=== PATIENT | female | born 1970 | race Caucasian/White ===

== ENCOUNTER 2023-07-18 07:56 | Outpatient (OUT) | payer BC, SELFPAY ==
[2023-07-18 08:14] LABS: Basophils Percent Auto 0.4 % (0.2-2.0); Eosinophils Absolute Auto 0.1 10^3/uL (0.0-0.7); Eosinophils Percent Auto 1.1 % (0.9-7.0); Hematocrit 37.4 % (36.0-48.0); Hemoglobin 12.4 g/dL (12.0-16.0); Immature Granulocytes Abs Auto 0.01 10^3/uL (0.00-0.03); Immature Granulocytes Pct Auto 0.2 % (0.0-0.5); Lymphocytes Absolute Auto 1.5 10^3/uL (1.2-3.8); Lymphocytes Percent Auto 27.8 % (20.5-60.0); Mean Corpuscular HGB Conc 33.2 g/dL (29.9-35.2); Mean Corpuscular Hemoglobin 30.5 pg (26.7-34.0); Mean Corpuscular Volume 92.1 fL (81.0-99.0); Mean Platelet Volume 9.9 fL (9.5-13.5); Monocytes Absolute Auto 0.4 10^3/uL (0.3-0.8); Monocytes Percent Auto 7.6 % (1.7-12.0); Neutrophils Absolute Auto 3.4 10^3/uL (1.4-6.5); Neutrophils Percent Auto 62.9 % (43.0-75.0); Platelet Count 227 10^3/uL (150-450); Red Blood Count 4.06 10^6/uL (4.20-5.40); White Blood Count 5.4 10^3/uL (4.0-11.0)
[2023-07-18 08:25] LABS: Estimated Average Glucose 108 mg/dL; Glycohemoglobin A1C 5.4 % (4.5-6.2)
[2023-07-18 08:51] LABS: Alanine Aminotransferase 23 U/L (14-59); Albumin Globulin Ratio 1.1; Albumin Level 3.9 g/dL (3.4-5.0); Alkaline Phosphatase 78 U/L (46-116); Anion Gap 9.3; Aspartate Amino Transferase 16 U/L (15-37); Bilirubin Total 0.4 mg/dL (0.2-1.0); Carbon Dioxide 28.6 mmol/L (21.0-32.0); Chloride 105 mmol/L (98-107); Chol HDL Ratio 2.1; Cholesterol 160 mg/dL (<=200); Estimated GFR (African America >60 (>=60); Estimated GFR (Non-African Ame >60 (>=60); Free T3 2.24 pg/mL (2.18-3.98); Globulin 3.4 g/dL; Glucose 84 mg/dL (74-106); HDL Cholesterol 75 mg/dL (40-60); Potassium 3.9 mmol/L (3.5-5.1); Sodium 139 mmol/L (136-145); Thyroid Stimulating Hormone 2.356 uIU/mL (0.358-3.740); Total Protein 7.3 g/dL (6.4-8.2); Triglycerides 22 mg/dL (<=150); VLDL CHOLESTEROL 4.4 mg/dL
[2023-07-19 11:15] LABS: Insulin 5.4 uIU/mL (2.6-24.9)
== END 2023-07-18 07:57 | disposition home or self-care (01) ==
LOC: LAB 07:59
PROVIDERS: PCP Family Medicine; Visit Provider Family Medicine
DX: Z00.00 Encounter for general adult medical examination without abnormal findings (principal)
CPT/HCPCS: 36415; 80053; 80061; 82306; 83036; 83525; 83540; 84436; 84443; 84481; 85025

== ENCOUNTER 2023-07-19 08:30 | Outpatient (REF) | payer BC, SELFPAY ==
[2023-07-20 10:15] LABS: Occult Blood Positive
== END 2023-07-19 08:31 | disposition home or self-care (01) ==
LOC: LAB 08:30
PROVIDERS: PCP Family Medicine; Visit Provider Family Medicine
DX: Z00.00 Encounter for general adult medical examination without abnormal findings (principal)
CPT/HCPCS: G0328

== ENCOUNTER 2023-09-02 09:24 | Outpatient (OUT) | payer BC, SELFPAY ==
--- OUTSIDE RECORDS SUMMARY | 2023-09-02 09:48 | XMS_ITS | CCD ---
Author Name Unknown Address [address] [place] [address] Organization [facility] Care Team Providers Care Food Service Counter Clerk Name Role Phone PHYSICIAN, DEFAULT Unavailable Unavailable PHYSICIAN, DEFAULT Unavailable Unavailable JESSICA, DR JEAN Attending Unavailable JESSICA, DR JEAN Admitting Unavailable JESSICA, DR JEAN Primary Care Unavailable JESSICA, DR JEAN Consulting Unavailable JESSICA, DR JEAN Admitting Unavailable JESSICA, DR JEAN Primary Care Unavailable JESSICA, DR JEAN Consulting Unavailable DR MIRANDA LOPEZ Attending Unavailable NONE, XXXX Primary Care Physician Unavailab Bladimir Sr Attending Unavailable Miranda Lopez Referring Unavailable Allergies Allergy Classification Reported Allergen(s) Allergy Type Date of Onset Reaction(s) Facility (1 source) No Known Medication Allergies; Translations: [No Known Medication Allergies] Propensity to adverse reactions (disorder) [facility] Repository Medications Completed/Discontinued Medications Medication Drug Class(es) Dates Sig (Normalized) Sig (Original) brimonidine tartrate 1 mg/ml ophthalmic solution (1 source) alpha-Adrenergic Agonist Start: 08-18-2023 brimonidine ophthalmic 0.1% solution 1 drop(s), Eye-Both, BID, Refill(s) 0 Start Date: 08/18/23 Status: Ordered Problems Problem Classification Problem Date Documented Da te Episodic/Chronic Deficiency and other anemia (5 sources) Anemia, unspecified; Translations: [ANEMIA UNSPECIFIED] Onset: 05-05-2022 Episodic Diabetes mellitus without complication (1 source) Other abnormal glucose; Translations: [OTHER ABNORMAL GLUCOSE] Onset: 05-07-2022 Episodic Heart valve disorders (2 sources) Mitral valve regurgitation; Translations: [Tricuspid valve regurgitation] 08-07-2023 Chronic Other gastrointestinal disorders (1 source) Abnormal feces; Translations: [Other fecal abnormalities] Onset: 08-18-2023 Episodic Other gastrointestinal disorders (1 source) Occult blood in stools 08-07-2023 Episodic Other nervous system disorders (5 sources) Carpal tunnel syndrome, right upper limb; Translations: [CARPAL TUNNEL SYND RIGHT UPPER LIMB] Onset: 05-03-2022 Chronic Other screening for suspected conditions (not mental disorders or infectious disease) (1 source) Encounter for screening for malignant neoplasm of rectum; Translations: [ENC SCREEN MALIG NEOPLASM RECTUM] Onset: 05-06-2022 Episodic Unclassified (1 source) Body mass index 20-24 - normal 08-18-2023 Results Test Name Value Interpretation Reference Range Facil ity Consent for Procedure/Surger yon 08-20-2023 Consent for Procedure/Surgery [id number] [facility] Facesheeton 08-19-2023 Facesheet [id number] FF Normal [facility] Ambulatory Visit Summaryon 1 10-19-2022 Ambulatory Visit Summary TORITO GUILLEN :1970 Visit Date:08/18/2023 Ambulatory Visit Instructions Your Diagnosis Positive fecal occult blood test Your Care Team Attending Physician - Bladimir CASTELLANOS MD Primary Care Physician - NONE, XXXX Referring Physician - Miranda Lopez MD This Is Your Medications List Contact prescribing physician if questions or concerns brimonidine ophthalmic (brimonidine ophthalmic 0.1% solution) Procedures Performed section, Cystectomy, Cystectomy, Dilation and curettage, Eye surgery. Discharge Vitals Heart Rate (Peripheral) 68 Respiratory Rate 16 Blood Pressure 118/76 Height 154.9 cm Height 61 in Weight 55.8 kg Weight 122.76 lb BMI 23.26 Medications What How Much When Instructions Unchanged brimonidine ophthalmic (brimonidine ophthalmic 0.1% solution) 1 Drops Both eyes 2 times a day Contact prescribing physician if questions or concerns Medications and Immunizations Administered Not Given influenza virus vaccine, inactivated, Patient Refuses Allergies No Known Allergies No Known Medication Allergies Problems Ongoing - Any problem that you are currently receiving treatment for. BMI 23.0-23.9, adult Mitral regurgitation Positive fecal occult blood test Tricuspid regurgitation Patient Survey You may receive a survey via text or e-mail asking about your office visit. Please share your experience with us by completing your survey. We appreciate your feedback and thank you for choosing us for your care. Normal [facility] Physician Referralon 023 Physician Referral [id number] Normal [facility] OCC BLD IMMUNO SCREENon 04-15 OCCULT BLOOD Negative Normal NEGATIVE [facility] Comment on above: Performed By: #### O BSCRN #### [facility] [address] [place] [address] Dr. Guerline Lewis T4, T3U, FTI LABCORPon 05-04 Free Thyroxine Index 1.6 Normal 1.2-4.9 [facility] Comment on above: Performed By: #### T HYLC #### [facility] [address] [place] [address] Dr. Guerline Lewis T3 Uptake 28 % Normal 24-39 [facility] Comment on above: Performed By: #### T HYLC #### [facility] [address] [place] [address] Dr. Guerline Lewis T4 [Mass/Vol] 5.6 ug/dL Normal 4.5-12.0 [facility] Comment on above: Performed By: #### T HYLC #### [facility] [address] [place] [address] Dr. Guerline Lewis CBC AUTO DIFFon 05-03-2022 BASO # 0.0 103/ul Normal 0.0-0.1 [facility] Comment on above: Performed By: #### C BC #### [facility] [address] [place] [address] Dr. Guerline Lewis Basophils/100 WBC (Bld) 0.5 % Normal 0.2-2.0 [facility] Comment on above: Performed By: #### C BC #### [facility] [address] [place] [address] Dr. Guerline Lewis EO # 0.1 103/ul Normal 0.0-0.[address] [facility] Comment on above: Performed By: #### C BC #### [facility] [address] [place] [address] Dr. Guerline Lewis Eosinophils/100 WBC (Bld) 2.1 % Normal 0.9-7.0 [facility] Comment on above: Performed By: #### C BC #### [facility] [address] [place] [address] Dr. Guerline Lewis Erythrocyte distribution wid th (RBC) [Ratio] 12.3 % Normal 11.0-15.0 [facility] Comment on above: Performed By: #### C BC #### [facility] [address] [place] [address] Dr. Guerline Lewis Hematocrit (Bld) [Volume fraction] 38.7 % Normal 3 6.0-48.0 [facility] Comment on above: Performed By: #### C BC #### [facility] [address] [place] [address] Dr. Guerline Lewis Hemoglobin (Bld) [Mass/Vol] 12.6 g/dL Normal 12.0-16. 0 [facility] Comment on above: Performed By: #### C BC #### [facility] [address] [place] [address] Dr. Guerline Lewis IG # 0.01 10e3/ul Normal 0.00-0.03 [facility] Comment on above: Performed By: #### C BC #### [facility] [address] [place] [address] Dr. Guerline Lewis IG % 0.2 % Normal 0.0-0.[address] [facility] Comment on above: Performed By: #### C BC #### [facility] [address] [place] [address] Dr. Guerline Lewis LYMPH # 1.2 103/ul Normal 1.2-3.[address] [facility] Comment on above: Performed By: #### C BC #### [facility] [address] [place] [address] Dr. Guerline Lewis Lymphocytes/100 WBC (Bld) 28.1 % Normal 20.5-60.0 [facility] Comment on above: Performed By: #### C BC #### [facility] [address] [place] [address] Dr. Guerline Lewis MANUAL DIFF REQ NO Normal [facility] Comment on above: Performed By: #### C BC #### [facility] [address] [place] [address] Dr. Guerline Lewis MCH (RBC) [Entitic mass] 29.6 pg Normal 26.7-34.0 [facility] Comment on above: Performed By: #### C BC #### [facility] [address] [place] [address] Dr. Guerline Lewis MCHC (RBC) [Mass/Vol] 32.6 g/dL Normal 29.9-35.2 [facility] Comment on above: Performed By: #### C BC #### [facility] [address] [place] [address] Dr. Guerline Lewis MCV (RBC) [Entitic vol] 90.8 fL Normal 81.0-99.0 [facility] Comment on above: Performed By: #### C BC #### [facility] [address] [place] [address] Dr. Guerline Lewis MONO # 0.3 103/ul Normal 0.3-0.8 [facility] Comment on above: Performed By: #### C BC #### [facility] [address] [place] [address] Dr. Guerline Lewis Monocytes/100 WBC (Bld) 7.6 % Normal 1.7-12.0 [facility] Comment on above: Performed By: #### C BC #### [facility] [address] [place] [address] Dr. Guerline Lewis NEUT # 2.7 103/ul Normal 1.4-6.[address] [facility] Comment on above: Performed By: #### C BC #### [facility] [address] [place] [address] Dr. Guerline Lewis Neutrophils/100 WBC (Bld) 61.5 % Normal 43.0-75.0 [facility] Comment on above: Performed By: #### C BC #### [facility] [address] [place] [address] Dr. Guerline Lewis Platelet mean volume (Bld) [ Entitic vol] 10.2 fL Normal 9.5-13.5 [facility] pital Comment on above: Performed By: #### C BC #### [facility] [address] [place] [address] Dr. Guerline Lewis PLT 210 103/ul Normal 150-[address] [facility] ost[facility] Comment on above: Performed By: #### C BC #### [facility] [address] [place] [address] Dr. Guerline Lewis RBC 4.26 106/ul Normal 4.20-5.40 [facility] Comment on above: Performed By: #### C BC #### [facility] [address] [place] [address] Dr. Guerline Lewis WBC 4.3 103/ul Normal 4.0-11.0 [facility] Comment on above: Performed By: #### C BC #### [facility] [address] [place] [address] Dr. Guerline Lewis GLYCOHEMOGLOBIN A1Con 2021 ADA RECOMMENDATION SEE BELOW Normal [facility] Comment on above: Result Comment: ADA RECOMMENDED LIMIT 4.0 - 6.0 ADA THERAPEUTIC TARGET < 7.0 ACTION SUGGESTED > 7.0 Performed By: #### A 1C #### [facility] [address] [place] [address] Dr. Guerline Lewis Glucose [Mass/Vol] 111 mg/dL Normal [facility] Comment on above: Performed By: #### A 1C #### [facility] [address] [place] [address] Dr. Guerline Lewis HbA1c (Bld) [Mass fraction] 5.5 % Normal 4.5-6.2 [facility] Comment on above: Performed By: #### A 1C #### [facility] [address] [place] [address] Dr. Guerline Lewis IRONon 05-03-2022 Iron [Mass/Vol] 90.0 ug/dL Normal 50.0-170.0 [facility] Comment on above: Performed By: #### I SCOTTIE #### [facility] [address] [address] [address] Guerline Lewis LIPID PROFILEon 05-03-2022 CHOL-HDL RATIO NORM SEE BELOW Normal [facility] Comment on above: Result Comment: 3.3 - 4.4 LOW RISK 4.4 - 7.1 AVERAGE RISK 7.1 - 11.0 MODERATE RISK >11.0 HIGH RISK Performed By: #### L IPID, TSH, CMP #### [facility] [address] [address] [address] Guerline Lewis Cholesterol [Mass/Vol] 153 mg/dL Normal <=200 Th [facility] Comment on above: Performed By: #### L IPID, TSH, CMP #### [facility] [address] [address] [address] Guerline Lewis Cholesterol in HDL [Mass/Vol] 76 mg/dL Critically high 4 0-60 [facility] Comment on above: Performed By: #### L IPID, TSH, CMP #### [facility] [address] [address] [address] Guerilne Lewis Cholesterol in LDL [Mass/Vol] 71.6 mg/dL Normal [facility] Comment on above: Performed By: #### L IPID, TSH, CMP #### [facility] [address] [address] [address] Guerline Lewis Cholesterol.total/Cholestero l in HDL [Mass ratio] 2.0 {ratio} Normal [facility] Comment on above: Performed By: #### L IPID, TSH, CMP #### [facility] [address] [address] [address] Guerline Lewis HDL NORMAL > or = 60 mg/dl - LO W CARDIOVASCULAR RISK <40 mg/dl - HIGH CARDIOVASCULAR RISK Normal [facility] Comment on above: Performed By: #### L IPID, TSH, CMP #### [facility] [address] [place] [address] Dr. Guerline Lewis LDL CALC NORMAL SEE BELOW Normal [facility] Comment on above: Result Comment: <100 mg/dl OPTIMAL 100 - 129 mg/dl NEAR OR ABOVE OPTIMAL 130 - 159 mg/dl BORDERLINE HIGH 160 - 189 mg/dl HIGH >190 mg/dl VERY HIGH Performed By: #### L IPID, TSH, CMP #### [facility] [address] [address] [address] Guerline Lewis Triglyceride [Mass/Vol] 27 mg/dL Normal <=150 T [facility] Comment on above: Performed By: #### L IPID, TSH, CMP #### [facility] [address] [address] [address] Guerline Lewis VLDL CALC 5.4 mg/dL Normal [facility] Comment on above: Performed By: #### L IPID, TSH, CMP #### [facility] [address] [place] [address] Dr. Guerline Lewis PROF 14(COMP METB)on 022 Albumin [Mass/Vol] 3.9 g/dL Normal 3.4-5.0 [facility] Comment on above: Performed By: #### L IPID, TSH, CMP #### [facility] [address] [place] [address] Dr. Guerline Lewis Albumin/Globulin [Mass ratio] 1.1 {ratio} Normal [facility] Comment on above: Performed By: #### L IPID, TSH, CMP #### [facility] [address] [place] [address] Dr. Guerline Lewis ALP [Catalytic activity/Vol] 75 U/L Normal 46-116 [facility] Comment on above: Performed By: #### L IPID, TSH, CMP #### [facility] [address] [place] [address] Dr. Guerline Lewis ALT [Catalytic activity/Vol] 25 U/L Normal 14-59 [facility] Comment on above: Performed By: #### L IPID, TSH, CMP #### [facility] [address] [place] [address] Dr. Guerline Lewis Anion gap [Moles/Vol] 12.0 mmol/L Normal Th [facility] Comment on above: Performed By: #### L IPID, TSH, CMP #### [facility] [address] [address] [address] Guerline Lewis AST [Catalytic activity/Vol] 15 U/L Normal 15-37 [facility] Comment on above: Performed By: #### L IPID, TSH, CMP #### [facility] [address] [address] [address] Guerline Lewis Bilirubin [Mass/Vol] 0.4 mg/dL Normal 0.2-1.0 [facility] Comment on above: Performed By: #### L IPID, TSH, CMP #### [facility] [address] [place] [address] Dr. Guerline Lewis Calcium [Mass/Vol] 9.1 mg/dL Normal 8.5-10.1 [facility] Comment on above: Performed By: #### L IPID, TSH, CMP #### [facility] [address] [place] [address] Dr. Guerline Lewis Chloride [Moles/Vol] 107 mmol/L Normal 98-107 [facility] Comment on above: Performed By: #### L IPID, TSH, CMP #### [facility] [address] [place] [address] Dr. Guerline Lewis CO2 [Moles/Vol] 26.3 mmol/L Normal 21.0-32.0 [facility] Comment on above: Performed By: #### L IPID, TSH, CMP #### [facility] [address] [place] [address] Dr. Guerline Lewis Creatinine [Mass/Vol] 0.64 mg/dL Normal 0.55-1.02 [facility] Comment on above: Performed By: #### L IPID, TSH, CMP #### [facility] [address] [address] [address] Guerline Lewis EGFR-AF AUSTRALIAN >60 Normal >=60 [facility] Comment on above: Performed By: #### L IPID, TSH, CMP #### [facility] [address] [address] [address] Guerline Lewis EGFR-NON AF AUSTRALIAN >60 Normal >=60 [facility] Comment on above: Performed By: #### L IPID, TSH, CMP #### [facility] [address] [address] [address] Guerline Lewis Globulin (S) [Mass/Vol] 3.4 g/dL Normal T [facility] Comment on above: Performed By: #### L IPID, TSH, CMP #### [facility] [address] [address] [address] Guerline Lewis Glucose [Mass/Vol] 85 mg/dL Normal 74-106 [facility] Comment on above: Performed By: #### L IPID, TSH, CMP #### [facility] [address] [place] [address] Dr. Guerline Lewis Potassium [Moles/Vol] 4.3 mmol/L Normal 3.5-5.1 [facility] Comment on above: Performed By: #### L IPID, TSH, CMP #### [facility] [address] [address] [address] Guerline Lewis Protein [Mass/Vol] 7.3 g/dL Normal 6.4-8.2 [facility] Comment on above: Performed By: #### L IPID, TSH, CMP #### [facility] [address] [address] [address] Guerline Lewis Sodium [Moles/Vol] 141 mmol/L Normal 136-145 [facility] Comment on above: Performed By: #### L IPID, TSH, CMP #### [facility] [address] [address] [address] Guerline Lewis Urea nitrogen [Mass/Vol] 16.0 mg/dL Normal 7.0-18.0 [facility] Comment on above: Performed By: #### L IPID, TSH, CMP #### [facility] [address] [address] [address] Guerline Lewis Urea nitrogen/Creatinine [Mass ratio] 25.0 mg/mg Normal [facility] Comment on above: Performed By: #### L IPID, TSH, CMP #### [facility] [address] [address] [address] Guerline Lewis TSHon 05-03-2022 TSH 1.883 uIU/mL Normal 0.358-3.740 [facility] Comment on above: Performed By: #### L IPID, TSH, CMP #### [facility] [address] [address] [address] Guerline Lewis Vital Signs Date Time Vital Sign Value Performing Clinician Faci lity 08-18-2023 14:34-0500 Blood Pressure Location Bladimir NILL [facility] [place] 08-18-2023 14:34-0500 Diastolic blood pressure 76 mm[Hg] Bladimir NILL [facility] [place] 08-18-2023 14:34-0500 Heart rate 68 /min Bladimir NILL [facility] [place] 08-18-2023 14:34-0500 Respiratory rate 16 /min Bladimir NILL [facility] [place] 08-18-2023 14:34-0500 Systolic blood pressure 118 mm[Hg] Bladimir NILL [facility] [place] Encounters Encounter Date Encounter Type Care Provider Facility Start: 08-18-2023 End: 08-19-2023 ambulatory Bladimir CASTELLANOS Facility:[facility] Start: 08-18-2023 End: 08-18-2023 Patient encounter procedure Bladimir William NILL [facility] Start: 2023 ambulatory Bladmiir CASTELLANOS Facility:[facility] Start: 07-20-2023 ambulatory Bladimir CASTELLANOS Facility:[facility] Start: 05-05-2022 End: 05-05-[address] MIRANDA LOPEZ Facility:[facility] Start: 05-03-2022 End: 05-04-[address] MIRANDA LOPEZ Facility:[facility] Start: 06-04-2017 End: 06-05-2017 Ambulatory DEFAULT PHYSICIAN Facility[facility] Procedures Date Procedure Procedure Detail Performing Clinician Bladder excision Bladimir Maciel Comment on above: uterine Bladder excision Bladimir Maciel Comment on above: uterus section Bladimir Maciel Dilation and curettage Viet CASTELLANOS Ophthalmic surgery (qualifier value) Bladimir CASTELLANOS Immunizations Immunization Date Immunization Notes Care Provider Fa cility NEGATED: Highlighted row has not occurred!08-18-2023 influenza virus vaccine, unspecified formulation Bladimir CASTELLANOS [facility] [place] Payers Date Payer Category Payer Unknown [id number] [id number] 1970 Unknown [id number] [id number] [id number] 1970 Unknown [id number] 1960 Unknown [id number] Unknown Social History Date Type Detail Facility Start: 08-18-2023 Tobacco smoking status Ex-smoker (fi nding) [facility] [place] Tobacco smoking status Never [facility] [place] Sex Assigned At Female [facility] Functional Status Date Assessment Result Facility 08-18-2023 Functional Status N/A [facility] Clinical Note 08-18-2023 Note Date & Type Note Facility 08-18-2023 Note Chief Complaint consultation for positive occult stool HPI Staff 53 year old female presents on consultation from Dr. Lopez for positive occult stool. Denies abdominal pain. Reports occasional bloating and rare nausea. Denies vomiting. Reports several year history of intermittent rectal bleeding with bowel movements. Reports blood is bright red on toilet tissue and in toilet water. Reports she recently developed intermittent burning rectal pain with bowel movements. Denies change in bowel habits. Never had colonoscopy in the past. No known family history of colon cancer. History of Present Illness 53 yo female referred for positive fecal occult blood in stools; denies change in bms, occasional BRBPR with wiping, occasionally in toilet bowel; some recent burning rectal pain after bms, no abd complaints; abdominal operations significant for , no previous colonoscopy; no asa or NSAID use, no SBE prophylaxis; no fmhx of GI malignancy or IBD; no tobacco use. Review of Systems PHQ Score Initial Depression Screen Score: 0 SCORE ROS - Provider Constitutional: no fever, no sweats, no weight loss. Eyes: no glasses, no blurred vision, no visual loss. ENMT: no dentures, no hoarseness, no swallowing difficulties, no hearing loss, no ear infection(s), no nose bleeds. Cardiovascular: normal blood pressure, no chest pain, regular heartbeat, no heart murmur. Respiratory: no shortness of breath, no cough, no asthma, no wheezing. Gastrointestinal: no nausea, no vomiting, no diarrhea, no constipation, no blood in stool, no change in bowel habits, no abdominal pain, no hepatitis. Genitourinary: no kidney stones, no urine infection, no dysuria. Musculoskeletal: no pain, no weakness. Skin: no changing moles, no rash, no skin lumps. Neurologic: no seizures, no epilepsy, no headache. Psychiatric: no emotional or psychiatric problem. Heme/Lymph: no bleeding problems, no anemia, no blood clots, no transfusions. Allergy/Immunologic: no swollen lymph nodes/glands, no IV drug abuse. Other: Additional ROS info: Except as noted in the above Review of Systems and in the History of Present Illness, all other systems have been reviewed and are negative or noncontributory. Physical Exam Vitals & Measurements HR: 68(Peripheral) RR: 16 BP: 118/76 HT: 61 in HT: 154.9 cm WT: 55.8 kg WT: 122.76 lb BMI: 23.26 HEENT: normal conjunctiva, sclera clear, no scleral icterus, EOM intact, PERRLA, oral mucosa moist without lesions. Neck: trachea midline, no mass, symmetric, no thyromegaly or nodules, no adenopathy Respiratory: lungs CTA, respirations non labored. Cardiovascular: regular rate and rhythm, no murmur, no pedal edema or varicosities. Gastrointestinal: soft, non distended, no tenderness, no masses, no palpable hernias, diastasis recti no, no hepatosplenomegaly; normal bs Lymphatic: no cervical adenopathy, no supraclavicular adenopathy. Musculoskeletal: normal gait, digits and nails without infection, nodes, cyanosis, clubbing. Skin: no rashes, no lesions, no ulcers, no subcutaneous nodules, induration. Psychiatric/Neuro: oriented to time, place, person, judgement normal, affect appropriate for age, insight intact, no focal deficits. Tests: labs reviewed,review of old records completed , Discussed surgical options, risks, and possible complications with patient. Assessment/Plan 1. Positive fecal occult blood test (R19.5: Other fecal abnormalities) plan colonoscopy under anesthesia, informed consent obtained. Follow-up No qualifying data available Problem List/Past Medical History Ongoing BMI 23.0-23.9, adult Mitral regurgitation Positive fecal occult blood test Tricuspid regurgitation Historical No qualifying data Procedure/Surgical History section, Cystectomy, Cystectomy, Dilation and curettage, Eye surgery. Medications brimonidine ophthalmic 0.1% solution, 1 drop(s), Eye-Both, BID Allergies No Known Allergies No Known Medication Allergies Social History Alcohol - Denies Alcohol Use, 08/18/2023 Substance Abuse - Denies Substance Abuse, 08/18/2023 Tobacco Former smoker, quit more than 30 days ago Tobacco Use:. Never Smokeless Tobacco Use:. Cigarettes, 0.75 per day. Started age 16.0 Years. Stopped age 25 Years., 08/18/2023 Family History Abdominal aortic aneurysm: Father. Immunizations Vaccine Date Status Comments influenza virus vaccine, inactivated - Not Given Patient Refuses [facility] Comment on above: Result Comment: Elec tronically Signed By: EMANUEL GRUBBS, Bladimir Florian\Date and Time Signed: 08/18/23 14:59 EST Evaluation + Plan note Note Date & Type Note Facility Evaluation + Plan note No data available for this section [facility] Discharge instructions Note Date & Type Note Facility Hospital Discharge instructions No data available for this section [facility] note Note Date & Type Note Facility Progress note No data available for this section [facility] Summary Purpose Family History No Family History Records FoundNo Family History Records Found No data available for this section No Family History Records Found Advance Directives No Advanced Directives Records FoundNo Advanced Directives Records FoundNo Advanced Directives Records Found Additional Source Comments INFORMATION SOURCE (unrecogn ized section and content) DATE CREATED AUTHOR 03/10/2018 [facility] DATE CREATED AUTHOR AUTHOR'S ORGANIZ ATION 05/08/2022 [facility] DATE CREATED AUTHOR AUTHOR'S ORGANIZ ATION 08/21/2023 [facility] FOR RECORDS PERTAINING TO PATIENTS WHO ARE OR HAVE BEEN ENROLLED IN A CHEMICAL DEPENDENCY/SUBSTANCEABUSE PROGRAM, SOME INFORMATION MAY BE OMITTED. This clinical summary was aggregated from multiple sources. Caution should be exercised in using it in the provision of clinical care. This summary normalizes information from multiple sources, and as a consequence, information in this document may materially change the coding, format and clinical context of patient data. In addition, data may be omitted in some cases. CLINICAL DECISIONS SHOULD BE BASED ON THE PRIMARY CLINICAL RECORDS. [facility] [employer] [facility]. provides no warranty or guarantee of the accuracy or completeness of information in this document.
== END 2023-09-02 09:25 | disposition home or self-care (01) ==
LOC: PST 09:24
PROVIDERS: PCP Family Medicine; Visit Provider Surgery
DX: Z01.818 Encounter for other preprocedural examination (principal); R19.5 Other fecal abnormalities

== ENCOUNTER 2023-09-09 09:22 | Day surgery (SDC) | payer BC, SELFPAY ==
--- NOTE | 2023-09-09 | OP_ITS ---
OPERATION DATE: 09/09/2023 PREOPERATIVE DIAGNOSIS: Positive fecal occult blood. POSTOPERATIVE DIAGNOSIS: Normal colonoscopy except for small internal/external hemorrhoids. PROCEDURE: Colonoscopy to cecum. SURGEON: Bladimir Buckley M.D. ANESTHESIA: Monitored anesthesia care. ESTIMATED BLOOD LOSS: Zero. INDICATIONS AND CONSENT: Patient is a 53-year-old female was recently found to have positive fecal occult blood in the stool. Indications, risks, benefits, alternatives of proceeding with colonoscopy were explained extensively to the patient, including the risks of bleeding, colon perforation or anesthetic complications. All of her questions were answered. Informed consent was obtained. PROCEDURE: Patient brought to the operating room, placed in the left lateral decubitus position. Monitored anesthesia care was provided. Rectal exam was performed which showed no masses or blood. The scope was inserted into the anal canal. Under direct visualization was advanced. With the aid of abdominal compression, it was advanced to the cecum where cecal markings were clearly identified. Upon withdrawal of the scope, mucosal surfaces were carefully examined. There were no mass lesions or polyps. No inflammatory changes or ulcerations. No significant diverticulosis. The scope was retroflexed in the anal canal. There were small internal/external hemorrhoids without active bleeding or inflammation. The scope was then withdrawn. Patient tolerated procedure well, was sent to recovery room in good condition. Follow up screening colonoscopy should be in 10 years. CC: Dmitri Sam M.D. [facility]
[2023-09-09 09:28] VITALS: BP 114/65; PULSE 16; RESP 16; TEMP 36.3; O2SAT 114; BMI 22.6
[2023-09-09] MEDS: LACTATED RINGER'S SOLUTION 1,000 ML 50 ML IV ×2 (09:40→11:51)
[2023-09-09 11:56] VITALS: BP 110/61; PULSE 92; RESP 15; TEMP 36.1; O2SAT 99
[2023-09-09 12:11] VITALS: BP 105/66; PULSE 93; RESP 20; O2SAT 98
[2023-09-09 12:26] VITALS: BP 106/56; PULSE 91; RESP 16; O2SAT 98
== END 2023-09-09 12:26 | disposition home or self-care (01) ==
PROVIDERS: PCP Family Medicine; Visit Provider Surgery
PROC: (CPT 811; principal; 2023-09-09 10:10)
DX: R19.5 Other fecal abnormalities (principal); K64.4 Residual hemorrhoidal skin tags; K64.8 Other hemorrhoids; I08.1 Rheumatic disorders of both mitral and tricuspid valves; Z87.891 Personal history of nicotine dependence
CPT/HCPCS: 00811; 45378; J2704

== ENCOUNTER 2024-07-02 06:33 | Outpatient (OUT) | payer BC, SELFPAY ==
--- OUTSIDE RECORDS SUMMARY | 2024-07-02 06:36 | XMS_ITS | CCD ---
Author Organization [facility] Care Team Providers Care Compression Molding Machine Setter Name Role Phone PHYSICIAN, DEFAULT Unavailable Unavailable PHYSICIAN, DEFAULT Unavailable Unavailable JESSICA, DR JEAN Attending Unavailable JESSICA, DR JEAN Admitting Unavailable JESSICA, DR JEAN Primary Care Unavailable JESSICA, DR JEAN Consulting Unavailable JESSIAC, DR JEAN Admitting Unavailable JESSICA, DR JEAN Primary Care Unavailable JESSICA, DR JEAN Consulting Unavailable JESSICA, DR JEAN Attending Unavailable NONE, XXXX Primary Care Physician Unavailab Bladimir Sr Attending Unavailable Miranda Sam Referring Bladimir Siegel Attending Unavailable Allergies Allergy Classification Reported Allergen(s) Allergy Type Date of Onset Reaction(s) Facility (1 source) No Known Medication Allergies; Translations: [No Known Medication Allergies] Propensity to adverse reactions (disorder) [facility] Repository Medications Completed/Discontinued Medications Medication Drug [...] Name Value Interpretation Reference Range Facil ity Outside Colonoscopyon 2023 Outside Colonoscopy [id number] #1.00TIFF [facility] Reminderson 09-10-2023 Reminders - From: Jocelyne Lama LPN To: N - Clinical; Sent: 09/10/2023 10:40:28 EST Show up: 08/10/2033 07:00:00 EST Subject: colonoscopy recall Due Date/Time: 09/09/2033 07:00:00 EST Reminder/Recall Patient due for screening colonoscopy 09/09/2033. [facility] Consent for Procedure/Surger yon 08-20-2023 Consent for Procedure/Surgery [id number] #1.00TIFF [facility] Facesheeton 08-19-2023 Facesheet [id number] #1.00TIFF [facility] Ambulatory Visit Summaryon 1 10-19-2022 Ambulatory Visit Summary WILMERCASPERTORITO J :1970 Visit Date:08/18/2023 Ambulatory Visit Instructions Your Diagnosis Positive fecal occult blood test Your Care Team Attending Physician - EMANUEL GRUBBS, Bladimir Thomas Primary Care Physician - NONE, XXXX Referring Physician - Miranda Sam MD This Is Your Medications List Contact [...] for choosing us for your care. Normal [facility] Physician Referralon 023 Physician Referral [id number] #1.00TIFF Normal [facility] OCC BLD IMMUNO SCREENon 04-15 OCCULT BLOOD Negative Normal NEGATIVE [facility] Comment on above: Performed By: #### O BSCRN #### [facility] [address] [place] [address] Dr. Guerline Lewis T4, T3U, FTI LABCORPon 05-04 Free Thyroxine Index 1.6 Normal 1.2-4.9 [facility] Comment on above: Performed By: #### T HYLC #### [facility] [address] [place] [address] Dr. Guerline Lewis T3 Uptake 28 % Normal 24-39 [facility] Comment on above: Performed By: #### T HYLC #### [facility] [address] [place] [address] Dr. Guerline Lewis T4 [Mass/Vol] 5.6 ug/dL Normal 4.5-12.0 [facility] Comment on above: Performed By: #### T HYLC #### [facility] [address] [place] [address] Dr. Guerline Lewis CBC AUTO DIFFon 05-03-2022 BASO # 0.0 103/ul Normal 0.0-0.1 [facility] Comment on above: Performed By: #### C BC #### [facility] [address] [place] [address] Dr. Guerline Lewis Basophils/100 WBC (Bld) 0.5 % Normal 0.2-2.0 [facility] Comment on above: Performed By: #### C BC #### [facility] [address] [place] [address] Dr. Guerline Lewis EO # 0.1 103/ul Normal 0.0-0.7 [facility] Comment on above: Performed By: #### C BC #### [facility] [address] [place] [address] Dr. Guerline Lewis Eosinophils/100 WBC (Bld) 2.1 % Normal 0.9-7.0 [facility] Comment on above: Performed By: #### C BC #### [facility] [address] [place] [address] Dr. Guerline Lewis Erythrocyte distribution width (RBC) [Ratio] 12.3 % Normal 11.0-15.0 [facility] Comment on above: Performed By: #### C BC #### [facility] [address] [place] [address] Dr. Guerline Lewis Hematocrit (Bld) [Volume fraction] 38.7 % Normal 36.0-48.0 [facility] Comment on above: Performed By: #### C BC #### [facility] [address] [place] [address] Dr. Guerline Lewis Hemoglobin (Bld) [Mass/Vol] 12.6 g/dL Normal 12.0-16.0 [facility] Comment on above: Performed By: #### C BC #### [facility] [address] [place] [address] Dr. Guerline Lewis IG # 0.01 10e3/ul Normal 0.00-0.03 [facility] Comment on above: Performed By: #### C BC #### [facility] [address] [place] [address] Dr. Guerline Lewis IG % 0.2 % Normal 0.0-0.5 [facility] Comment on above: Performed By: #### C BC #### [facility] [address] [place] [address] Dr. Guerline Lewis LYMPH # 1.2 103/ul Normal 1.2-3.8 [facility] Comment on above: Performed By: #### C BC #### [facility] [address] [place] [address] Dr. Guerline Lewis Lymphocytes/100 WBC (Bld) 28.1 % Normal 20.5-60.0 [facility] Comment on above: Performed By: #### C BC #### [facility] [address] [place] [address] Dr. Guerline Lewis MANUAL DIFF REQ NO Normal [facility] Comment on above: Performed By: #### C BC #### [facility] [address] [place] [address] Dr. Guerline Lewis MCH (RBC) [Entitic mass] 29.6 pg Normal 26.7-34.0 [facility] Comment on above: Performed By: #### C BC #### [facility] [address] [place] [address] Dr. Guerline Lewis MCHC (RBC) [Mass/Vol] 32.6 g/dL Normal 29.9-35.2 [facility] Comment on above: Performed By: #### C BC #### [facility] [address] [place] [address] Dr. Guerline Lewis MCV (RBC) [Entitic vol] 90.8 fL Normal 81.0-99.0 [facility] Comment on above: Performed By: #### C BC #### [facility] [address] [place] [address] Dr. Guerline Lewis MONO # 0.3 103/ul Normal 0.3-0.8 [facility] Comment on above: Performed By: #### C BC #### [facility] [address] [place] [address] Dr. Guerline Lewis Monocytes/100 WBC (Bld) 7.6 % Normal 1.7-12.0 [facility] Comment on above: Performed By: #### C BC #### [facility] [address] [place] [address] Dr. Guerline Lewis NEUT # 2.7 103/ul Normal 1.4-6.5 [facility] Comment on above: Performed By: #### C BC #### [facility] [address] [place] [address] Dr. Guerline Lewis Neutrophils/100 WBC (Bld) 61.5 % Normal 43.0-75.0 [facility] Comment on above: Performed By: #### C BC #### [facility] [address] [place] [address] Dr. Guerline Lewis Platelet mean volume (Bld) [Entitic vol] 10.2 fL Normal 9.5-13.5 [facility] Comment on above: Performed By: #### C BC #### [facility] [address] [place] [address] Dr. Guerline Lewis PLT 210 103/ul Normal 150-450 [facility] Comment on above: Performed By: #### C BC #### [facility] [address] [place] [address] Dr. Guerline Lewis RBC 4.26 106/ul Normal 4.20-5.40 [facility] Comment on above: Performed By: #### C BC #### [facility] [address] [place] [address] Dr. Guerline Lewis WBC 4.3 103/ul Normal 4.0-11.0 [facility] Comment on above: Performed By: #### C BC #### [facility] [address] [place] [address] Dr. Guerline Lewis GLYCOHEMOGLOBIN A1Con 2021 ADA RECOMMENDATION SEE BELOW Normal [facility] Comment on above: Result Comment: ADA RECOMMENDED LIMIT 4.0 - 6.0 ADA THERAPEUTIC TARGET < 7.0 ACTION SUGGESTED > 7.0 Performed By: #### A 1C #### [facility] [address] [place] [address] Dr. Guerline Lewis Glucose [Mass/Vol] 111 mg/dL Normal [facility] Comment on above: Performed By: #### A 1C #### [facility] [address] [address] [address] Guerline Lewis HbA1c (Bld) [Mass fraction] 5.5 % Normal 4.5-6.2 [facility] Comment on above: Performed By: #### A 1C #### [facility] [address] [address] [address] Guerline Lewis IRONon 05-03-2022 Iron [Mass/Vol] 90.0 ug/dL Normal 50.0-170.0 [facility] Comment on above: Performed By: #### I SCOTTIE #### [facility] [address] [place] [address] Dr. Guerline Lewis LIPID PROFILEon 05-03-2022 CHOL-HDL RATIO NORM SEE BELOW Normal [facility] Comment on above: Result Comment: 3.3 - 4.4 LOW RISK 4.4 - 7.1 AVERAGE RISK 7.1 - 11.0 MODERATE RISK >11.0 HIGH RISK Performed By: #### L IPID, TSH, CMP #### [facility] [address] [place] [address] Dr. Guerline Lewis Cholesterol [Mass/Vol] 153 mg/dL Normal <=200 [facility] Comment on above: Performed By: #### L IPID, TSH, CMP #### [facility] [address] [place] [address] Dr. Guerline Lewis Cholesterol in HDL [Mass/Vol] 76 mg/dL Critically high 40-60 [facility] Comment on above: Performed By: #### L IPID, TSH, CMP #### [facility] [address] [address] [address] Guerline Lewis Cholesterol in LDL [Mass/Vol] 71.6 mg/dL Normal [facility] Comment on above: Performed By: #### L IPID, TSH, CMP #### [facility] [address] [place] [address] Dr. Guerline Lewis Cholesterol.total/Cho lesterol in HDL [Mass ratio] 2.0 {ratio} Normal [facility] Comment on above: Performed By: #### L IPID, TSH, CMP #### [facility] [address] [address] [address] Guerline Lewis HDL NORMAL > or = 60 mg/dl - LOW CARDIOVASCULAR RISK <40 mg/dl - HIGH CARDIOVASCULAR RISK Normal [facility] Comment on above: Performed By: #### L IPID, TSH, CMP #### [facility] [address] [address] [address] Guerline Lewis LDL CALC NORMAL SEE BELOW Normal [facility] Comment on above: Result Comment: <100 mg/dl OPTIMAL 100 - 129 mg/dl NEAR OR ABOVE OPTIMAL 130 - 159 mg/dl BORDERLINE HIGH 160 - 189 mg/dl HIGH >190 mg/dl VERY HIGH Performed By: #### L IPID, TSH, CMP #### [facility] [address] [address] [address] Guerline Lewis Triglyceride [Mass/Vol] 27 mg/dL Normal <=150 [facility] Comment on above: Performed By: #### L IPID, TSH, CMP #### [facility] [address] [address] [address] Guerline Lewis VLDL CALC 5.4 mg/dL Normal [facility] Comment on above: Performed By: #### L IPID, TSH, CMP #### [facility] [address] [address] [address] Guerline Lewis PROF 14(COMP METB)on 022 Albumin [Mass/Vol] 3.9 g/dL Normal 3.4-5.0 [facility] Comment on above: Performed By: #### L IPID, TSH, CMP #### [facility] [address] [address] [address] Guerline Lewis Albumin/Globulin [Mass ratio] 1.1 {ratio} Normal [facility] Comment on above: Performed By: #### L IPID, TSH, CMP #### [facility] [address] [address] [address] Guerline Lewis ALP [Catalytic activity/Vol] 75 U/L Normal 46-116 [facility] Comment on above: Performed By: #### L IPID, TSH, CMP #### [facility] [address] [place] [address] Dr. Guerline Lewis ALT [Catalytic activity/Vol] 25 U/L Normal 14-59 [facility] Comment on above: Performed By: #### L IPID, TSH, CMP #### [facility] [address] [place] [address] Dr. Guerline Lewis Anion gap [Moles/Vol] 12.0 mmol/L Normal [facility] Comment on above: Performed By: #### L IPID, TSH, CMP #### [facility] [address] [place] [address] Dr. Guerline Lewis AST [Catalytic activity/Vol] 15 U/L Normal 15-37 [facility] Comment on above: Performed By: #### L IPID, TSH, CMP #### [facility] [address] [place] [address] Dr. Guerline Lewis Bilirubin [Mass/Vol] 0.4 mg/dL Normal 0.2-1.0 [facility] Comment on above: Performed By: #### L IPID, TSH, CMP #### [facility] [address] [place] [address] Dr. Guerline Lewis Calcium [Mass/Vol] 9.1 mg/dL Normal 8.5-10.1 [facility] Comment on above: Performed By: #### L IPID, TSH, CMP #### [facility] [address] [place] [address] Dr. Guerline Lewis Chloride [Moles/Vol] 107 mmol/L Normal 98-107 [facility] Comment on above: Performed By: #### L IPID, TSH, CMP #### [facility] [address] [place] [address] Dr. Guerline Lewis CO2 [Moles/Vol] 26.3 mmol/L Normal 21.0-32.0 [facility] Comment on above: Performed By: #### L IPID, TSH, CMP #### [facility] [address] [place], [place] [id number] Dr. Guerline Lewis Creatinine [Mass/Vol] 0.64 mg/dL Normal 0.55-1.02 [facility] Comment on above: Performed By: #### L IPID, TSH, CMP #### [facility] [address] [address] [address] Guerline Lewis EGFR-AF CYMRO >60 Normal >=60 [facility] Comment on above: Performed By: #### L IPID, TSH, CMP #### [facility] [address] [address] [address] Guerline Lewis EGFR-NON AF CYMRO >60 Normal >=60 [facility] Comment on above: Performed By: #### L IPID, TSH, CMP #### [facility] [address] [place] [address] Dr. Guerline Lewis Globulin (S) [Mass/Vol] 3.4 g/dL Normal [facility] Comment on above: Performed By: #### L IPID, TSH, CMP #### [facility] [address] [place] [address] Dr. Guerline Lewis Glucose [Mass/Vol] 85 mg/dL Normal 74-106 [facility] Comment on above: Performed By: #### L IPID, TSH, CMP #### [facility] [address] [place] [address] Dr. Guerline Lewis Potassium [Moles/Vol] 4.3 mmol/L Normal 3.5-5.1 [facility] Comment on above: Performed By: #### L IPID, TSH, CMP #### [facility] [address] [place] [address] Dr. Guerline Lewis Protein [Mass/Vol] 7.3 g/dL Normal 6.4-8.2 [facility] Comment on above: Performed By: #### L IPID, TSH, CMP #### [facility] [address] [place] [address] Dr. Guerline Lewis Sodium [Moles/Vol] 141 mmol/L Normal 136-145 [facility] Comment on above: Performed By: #### L IPID, TSH, CMP #### [facility] [address] [address] [address] Guerline Lewis Urea nitrogen [Mass/Vol] 16.0 mg/dL Normal 7.0-18.0 [facility] Comment on above: Performed By: #### L IPID, TSH, CMP #### [facility] [address] [address] [address] Guerline Lewis Urea nitrogen/Creatinine [Mass ratio] 25.0 mg/mg Normal [facility] Comment on above: Performed By: #### L IPID, TSH, CMP #### [facility] [address] [address] [address] Guerline Lewis TSHon 05-03-2022 TSH 1.883 uIU/mL Normal 0.358-3.740 [facility] Comment on above: Performed By: #### L IPID, TSH, CMP #### [facility] [address] [address] [address] Guerline Lewis Vital Signs Date Time Vital Sign Value Performing Clinician Huberti lity 08-18-2023 14:34-0500 Blood Pressure Location Bladimir USAMAL [facility] 08-18-2023 14:34-0500 Diastolic blood pressure 76 mm[Hg] Bladimir FORRESTERL [facility] 08-18-2023 14:34-0500 Heart rate 68 /min Bladimir FORRESTERL [facility] 08-18-2023 14:34-0500 Respiratory rate 16 /min Bladimir NILL [facility] 08-18-2023 14:34-0500 Systolic blood pressure 118 mm[Hg] Bladimir FORRESTERL [facility] Encounters Encounter Date Encounter Type Care Provider Facility Start: 09-09-2023 End: 09-10-2023 ambulatory Bladimir CASTELLANOS Facility:[id number] Start: 08-18-2023 End: 08-19-2023 ambulatory Bladimir CASTELLANOS Facility:[facility] Start: 08-18-2023 End: 08-18-2023 Patient encounter procedure Bladimir CASTELLANOS [facility] Start: 2023 ambulatory Bladimir EMANUEL Facility:[facility] Start: 07-20-2023 ambulatory Bladimir CASTELLANOS Facility:[facility] Start: 05-05-2022 End: 05-05-[address] MIRANDA SAM Facility:[facility] Start: 05-03-2022 End: 05-04-[address] MIRANDA SAM Facility:[facility] Start: 06-04-2017 End: 06-05-2017 Ambulatory DEFAULT PHYSICIAN Facility:[facility] Procedures Date Procedure Procedure Detail Performing Clinician Bladder excision Bladimir USAMA Maciel Comment on above: uterine Bladder excision Bladimir FORRESTER Janell Comment on above: uterus section Bladimir Maciel Dilation and curettage [place] USAMAJanell Ophthalmic surgery (qualifier value) Bladimir FORRESTERJanell Immunizations Immunization Date Immunization Notes Care Provider Fa cility NEGATED: Highlighted row has not occurred!08-18-2023 influenza virus vaccine, unspecified formulation Bladimir CASTELLANOS [facility] Payers Date Payer Category Payer Unknown [id number] [id number] [id number] 1970 Unknown [id number] [id number] [id number] 1970 Unknown [id number] 1970 Unknown [id number] [id number] [id number] 1960 Unknown [id number] Unknown Social History Date Type Detail Facility Start: 08-18-2023 Tobacco smoking status Ex-smoker (fi nding) [facility] Tobacco smoking status Never [facility] Sex Assigned At Female [facility] Functional Status Date Assessment Result Facility 08-18-2023 Functional Status N/A [facility] Clinical Note 08-18-2023 Note Date & Type Note Facility 08-18-2023 Note Chief Complaint consultation for positive occult stool HPI Staff 53 year old female presents on consultation from Dr. Sam for positive occult stool. Denies abdominal pain. [...] vaccine, inactivated - Not Given Patient Refuses [facility] Comment on above: Result Comment: Elec tronically Signed By: EMANUEL GRUBBS, Bladimir Florian\Date and Time Signed: 08/18/23 14:59 EST Evaluation + Plan note Note Date & Type Note Facility Evaluation + Plan note No data available for this section [facility] Discharge instructions Note Date & Type Note Facility Hospital Discharge instructions No data available for this section [facility] Progress note Note Date & Type Note Facility Progress note No data available for this section [facility] Summary Purpose Family History No Family History Records FoundNo Family History Records Found No data available for this section No Family History Records Found Advance Directives No Advanced Directives Records FoundNo Advanced Directives Records FoundNo Advanced Directives Records Found Additional Source Comments INFORMATION SOURCE (unrecogn ized section and content) DATE CREATED AUTHOR 03/10/2018 [facility] DATE CREATED AUTHOR AUTHOR'S ORGANIZ ATION 05/08/2022 [facility] DATE CREATED AUTHOR AUTHOR'S ORGANIZ ATION 09/15/2023 [facility] FOR RECORDS PERTAINING TO PATIENTS WHO [...] BE BASED ON THE PRIMARY CLINICAL RECORDS. [employer] provides no warranty or guarantee of the accuracy or completeness of information in this document.
[2024-07-02 07:04] LABS: Basophils Percent Auto 0.3 % (0.2-2.0); Eosinophils Percent Auto 0.5 % (0.9-7.0); Hematocrit 37.8 % (36.0-48.0); Hemoglobin 12.6 g/dL (12.0-16.0); Immature Granulocytes Abs Auto 0.01 10^3/uL (0.00-0.03); Immature Granulocytes Pct Auto 0.3 % (0.0-0.5); Lymphocytes Percent Auto 26.9 % (20.5-60.0); Mean Corpuscular HGB Conc 33.3 g/dL (29.9-35.2); Mean Corpuscular Hemoglobin 30.5 pg (26.7-34.0); Mean Corpuscular Volume 91.5 fL (81.0-99.0); Mean Platelet Volume 9.4 fL (9.5-13.5); Monocytes Absolute Auto 0.3 10^3/uL (0.3-0.8); Monocytes Percent Auto 8.5 % (1.7-12.0); Neutrophils Absolute Auto 2.4 10^3/uL (1.4-6.5); Neutrophils Percent Auto 63.5 % (43.0-75.0); Platelet Count 272 10^3/uL (150-450); Red Blood Count 4.13 10^6/uL (4.20-5.40); Red Cell Distribution Width 12.8 % (11.0-15.0); White Blood Count 3.8 10^3/uL (4.0-11.0)
[2024-07-02 07:24] LABS: Estimated Average Glucose 108 mg/dL; Glycohemoglobin A1C 5.4 % (4.5-6.2)
[2024-07-02 07:37] LABS: Alanine Aminotransferase 25 U/L (14-59); Albumin Globulin Ratio 1.1; Albumin Level 3.5 g/dL (3.4-5.0); Alkaline Phosphatase 95 U/L (46-116); Anion Gap 14.5; Aspartate Amino Transferase 20 U/L (15-37); BUN Creatinine Ratio 15.1; Bilirubin Total 0.6 mg/dL (0.2-1.0); Calcium 9.5 mg/dL (8.5-10.1); Carbon Dioxide 26.2 mmol/L (21.0-32.0); Chloride 108 mmol/L (98-107); Cholesterol 166 mg/dL (<=200); Estimated GFR (African America >60 (>=60 mL/min/1.73m^2); Estimated GFR (Non-African Ame >60 (>=60 mL/min/1.73m^2); Free T3 2.52 pg/mL (2.18-3.98); Globulin 3.3 g/dL; Glucose 93 mg/dL (74-106); HDL Cholesterol 81 mg/dL (40-60); Potassium 3.7 mmol/L (3.5-5.1); Sodium 145 mmol/L (136-145); Thyroid Stimulating Hormone 1.764 uIU/mL (0.358-3.740); Total Protein 6.8 g/dL (6.4-8.2); Triglycerides 29 mg/dL (<=150); VLDL CHOLESTEROL 5.8 mg/dL
== END 2024-07-02 06:34 | disposition home or self-care (01) ==
PROVIDERS: PCP Family Medicine; Visit Provider Family Medicine
DX: Z00.00 Encounter for general adult medical examination without abnormal findings (principal)
CPT/HCPCS: 36415; 80053; 80061; 82306; 83036; 84436; 84443; 84481; 85025

== ENCOUNTER 2025-07-22 07:03 | Outpatient (OUT) | payer BC, SELFPAY ==
--- OUTSIDE RECORDS SUMMARY | 2024-08-19 10:18 | XMS_ITS | Continuity of Care Document ---
Author Organization [facility] Address [address] [place] [phone] Phone Care Team Providers Care Patch Washer Name Role Phone Kymberly Lomeli Unavailable Unavaila ble Procedures Procedure Date PSYTX PT&/FAMILY 60 MINUTES PSYTX PT&/FAMILY 60 MINUTES PSYCH DIAGNOSTIC EVALUATION Advance Directives Directive Yes / No Effective Date File Name No Information Encounters Encounter Description Practice Location Reason(s) For Visit Diagnoses Date Provider Providers Copied on Encounter PSYTX PT&/FAMILY 60 MINUTES [facility], [address] [place] [address], [id number], tel:[phone] Behavorial Health Adjustment disorder with mixed anxiety and depressed mood Thomas Traylor. [address] [place] [address], [id number], . tel:[phone] PSYTX PT&/FAMILY 60 MINUTES [facility], [address] [place] [address], [id number], tel:[phone] Behavorial Health Adjustment disorder with mixed anxiety and depressed mood Thomas Traylor. [address] [place] [address], [id number], . tel:[phone] PSYCH DIAGNOSTIC EVALUATION [facility], [address] [place] [address], [id number], tel:[phone] Behavorial Health Adjustment disorder with mixed anxiety and depressed mood Thomas Traylor. [address] [place] [address], [id number], [place]. tel:[phone] Family History Family Member Type Diagnosis Age At Onset No Information Payers Payer name Insurance type Covered green party ID [employer] (s) [id number] Social History Type Description Quantity Date Captured Comments Sex Female Smoking Status No Information Sexual Orientation Straight or heterosexual May Gender Identity Female Chief Complaint And Reason For Visit No Information Reason For Referral Reason For Referral No Information Plan Of Treatment Date Type Action Status Goal Hep A. Due on du e Goal Tdap. Due on due Goal Zoster vaccine (). Due on due Goal Depression screening. Due on due Goal HPV. Due on due Goal Colonoscopy. Due on due Goal FIT. Due on due Goal Tdap Vaccine. Due on 2023 due Goal Influenza vaccine. Due on due Goal Mammogram. Due on due Goal Hepatitis C screening. Due o n due Goal FIT-DNA. Due on due Goal PRAPARE ASSESSMENT. Due on due Goal CT-Colonography. Due on due Goal Unhealthy drug use screening . Due on due Goal FOBT. Due on due Goal Lipid panel. Due on due Goal FIT-DNA. Due on due Goal CT-Colonography. Due on due Goal Tdap. Due on due Goal PRAPARE ASSESSMENT. Due on O due Goal Colonoscopy. Due on due Goal Influenza vaccine. Due on Oc due Goal Unhealthy drug use screening . Due on due Goal Zoster vaccine (). Due on due Goal Lipid panel. Due on due Goal FOBT. Due on due Goal Depression screening. Due on due Goal Tdap Vaccine. Due on 2023 due Goal Mammogram. Due on due Goal FIT. Due on due Goal Hepatitis C screening. Due o n due Goal HPV. Due on due Goal Mammogram. Due on due Goal Hep A. Due on du e Goal FIT-DNA. Due on due Goal Depression screening. Due on due Goal HPV. Due on due Goal PRAPARE ASSESSMENT. Due on O due Goal Tdap. Due on due Goal FIT. Due on due Goal Zoster vaccine (). Due on due Goal Tdap Vaccine. Due on 2023 due Goal Lipid panel. Due on due Goal Colonoscopy. Due on [address]-Colonography. Due on due Goal Unhealthy drug use screening . Due on due Goal Influenza vaccine. Due on Oc due Goal FOBT. Due on due Goal Hepatitis C screening. Due o n due History Of Present Illness Encounter Date Complaint History Of Prese nt Illness No Information Functional Status Date Functional Assessmen t No Information Instructions Date Instruction Additional Infor mation No Information Assessments Type Assessment Date assessment Adjustment disorder with mixed a nxiety and depressed mood Patient Care Teams Name Effective Dates (start - stop) Status Members No Information
--- OUTSIDE RECORDS SUMMARY | 2025-07-21 09:30 | XMS_ITS ---
Author Organization [facility] in [place] Address [address] [place] [address] Care Team Providers Care Director Of Music Therapy Name Role Phone Cecy Chapito Primary Care Provider [phone] Allergies No Known Allergies REASON FOR VISIT Wellness- work PE Medications Medication SIG (Take, Route, Frequency, Duration) Notes Start Date End Date Status Vitamin D3 50 MCG (1999) 1 capsule Orally Onc e a day; Duration: 30 days 3Active Social History Tobacco Use: Social History Observation Description Date Details (start date - stop date) Former Smoker NA - 10/14/1993 Tobacco Use/Smoking Question Answer Notes Patient is a former smoker When did you stop smoking?10/14/1993How long has it been since you last smoked?> 10 yearsAUDIT-C (Standard) Question Answer Notes Did you have a drink containing alcohol in the p ast year? No Rrcoht7NjpxkqgqsttlpuPzzjbcmu Vital Signs Blood pressure systolic 98 mm Hg 07/21/20 25 Blood pressure diastolic 60 mm Hg 025 Height 61 in 2025 Weight 122.0 lbs 2025 BMI 23.05 kg/m2 2025 Encounters Encounter Location Date Provider Diagnosis [facility] [address] [facility] [place] [address] 2025 Chapito Sam Well adult Z00.0 0 Assessments Encounter Date Diagnosis (ICD Code) Assessment Notes Treatment Notes Treatment Clinical Notes Section Notes 2025 Well adult (ICD-10 - Z00.00) Plan Of Treatment Pending Test Test Name Order Date HEMOGLOBIN A1C (GLYCO) 2025 LIPID PANEL (CHOL/TRIG/HDL/LDL) 07/21/20 25 THYROID PANEL (T4/TSH/FREE T3) 5 MM screening mammo BI 2025 CMP (COMP MET WELSH) w/eGFR CKD-EPI 2024 CBC WITH DIFF 2025 Progress Notes * Toi GUILLENB: 9 (55 yo F)Acc No.[id number]:2025 UNLOCKED PROGRESS NOTE Progress Note Patient: Hanh KUMAR :?Dmitri Sam ([facility]), MDDOB:1970???Age: 55 Y???Sex:FemaleDate:2025Phone:[phone]:[id number], [place], [id number] In:02:29 PM ESTCheck Out:02:54 PM EST Subjective: * Chief Complaints: * 1 . Wellness- work PE. * HPI: ???Depression Screening:?PHQ-2 (2015 Edition)?Little interest or pleasure in doing things? Not at all ?Feeling down, depressed, or hopeless??Not at all ?Total Score?0 * ROS: ???EENT:?hearing changes?denies.?visual changes?denies. non-healing mouth sores?denies.?swollen glands or neck lumps?denies.?hoarseness?denies.?sore throat?denies.?difficulty swallowing?denies.?nose bleeds?denies.?nasal congestion?denies.?ear ache?denies.?ear discharge denies.?ringing in ears?denies.?light sensitivity?denies.?eye pain?denies.?blurring?denies.?eye irritation?denies.?double vision?denies. vision loss?denies.?General/Constitutional:?Sweats:?Denies.?Fatigue?denies.?Sleep proble ms?denies.?Anorexia?denies.?Malaise?denies.?Weight loss?denies. Fatigue or Weakness?denies.?Fever or Chills?denies.?Cardiovascular:?Shortness of Breath w/lying flat?denies.?Lightheadedne ss/dizziness?denies.?Chest tightness/ heavy pressure?denies.?Swelling of legs, a nkles, or feet?denies.?Waking up with shortness of breath?denies.?Chest pain&#16 0;denies.?Palpitations?denies.?Weight gain?denies.?Respiratory:?Chronic or frequent cough?denies.?Coughing up blood&#1 60;denies.?Difficulty breathing?denies.?Productive cough?denies.?Snoring&#1 60;denies.?Shortness of breath that awakens from sleep (PND)?denies.?Chest pain? denies.?Sputum production?denies.?Wheezing?denies.?Musculoskeletal:?Joint pain?denies.?Joint Fluid?denies.?Backpain?denies.?Knee pain?denies.?Neck pain?denies.?Joint Stiffness?denies.?Muscle cramps?denies.?Weakness of muscles?denies.?Arthritis?denies.?Muscle aches?denies.?Pain in shoulder(s)?denies.?Swollen joints?denies.? * Medical History: C arpal tunnel syndrome, Tricuspid regurgitation, Mitral regurgitation, Well adult, Carpal tunnel syndrome, right upper limb, Diarrhea, Nausea, Moderate tricuspid regurgitation, Moderate mitral regurgitation, Dyspnea, Endometrial polyp, Menorrhagia, Well adult, Abdominal pain, right upper quadrant, Scabies, Nephrolithiasis. * Surgical History: E ye Surgery , Eye Surgery , C Section , C Section X 1 , Cyst Removal- Uterus , Colonoscopy- Dr. Bucklye 09/09/2023. * Hospitalization/Major Diagno stic Procedure: D enyazmin Past Hospitalization. * Family History: F ather: alive. M other: alive. S ister(s): alive. S on(s): alive. D nena(s): alive. 3 sister(s) - healthy. 2 son(s) , 2 daughter(s) - healthy. . * Social History: ???Tobacco Use:?Tobacco Use/Smoking?Patient is a?former smoker ?When did you stop smoking??10/14/1993 ?How long has it been since you last smoked? > 10 years ???Drug/Alcohol:?AUDIT-C (Standard)?Did you have a drink containing alcohol in the past year??No ?Points?0 ?Interpretation?Negative * Medications: T aking Vitamin D3 50 MCG (1999) Capsule 1 capsule Orally Once a day , Discontinued Amoxicillin-Pot Clavulanate 875-125 MG Tablet 1 tablet Orally every 12 hrs , Medication List reviewed and reconciled with the patient * Allergies: N .K.D.A. Objective: * Vitals: W t:122.0lbs, Ht: 61 in, BP:98/60mm Hg, BMI:23.05Index, Ht-cm: 154.94 cm, Wt-k.34 kg. * Examination: ???Physical Exam: ?GENERAL:?well developed, well nourished, in no acute distress.?HEAD:?normocephalic/atraumatic.?EYES:?pupils equal, round and reactive to light, conjunctivae and sclerae normal.?EARS:?no deformity or lesion of external ear, canals and TM appear normal bilaterally, TM's intact, not inflamed with normal light reflex, hearing grossly normal to conversational speech.?NOSE:?no deformity, discharge, inflammation, or lesions. ?MOUTH:?mucous membranes moist, normal oropharynx and posterior pharynx without lesions or exudates, tongue normal, dentition normal.?NECK:?neck supple, no masses or palpable cervical nodes, trachea midline, thyroid without nodules, masses, tenderness, or enlargement.?CHEST:?no chest wall deformity, no chest wall tenderness. ?LUNGS:?normal respiratory effort and clear to auscultation, no wheezes, rales, or rhonchi, good air exchange.?CARDIO:?regular rate and rhythm, normal S1 and S2, nor murmur, rub, or gallop.?PULSES:?normal capillary refill.?ABDOMEN:?soft, non-distended, non-tender, no masses.?MUSCULOSKELETAL:?no deformity or scoliosis noted, normal range of motion, joints normal, no erythema, edema, effusion, or ecchymosis.?EXTREMITY:?no clubbing, cyanosis, edema, or deformity withnormal ROM in both upper and lower bilateral extremities.?NEUROLOGIC:?grossly normal.?SKIN:?no rashes, ulcerations, or suspicious lesions.?LYMPH NODES:?no cervical adenopathy, nodes normal.?MENTAL STATUS:?alert and oriented x3, normal mood and affect.? Assessment: * Assessment: 1.?Well adult - Z00.00 (Primary)??? Plan: * Treatment: ?LAB: HEMOGLOBIN A1C (GLYCO) ?LAB: LIPID PANEL (CHOL/TRIG/HDL/LDL) ?LAB: THYROID PANEL (T4/TSH/FREE T3) ?LAB: CMP (COMP MET WELSH) w/eGFR CKD-EPI ?LAB: CBC WITH DIFF ?Imaging: MM screening mammo BI * * Electronic signature of Chapito Sam MD, [id number] on 07/22/2025 at 07:06 AM EST Sign off status: PendingVisit Status:?CHK (Check Out) * Provider: Neda Sam ([facility])MD Date: 09/20/2024 Generated for Printing/Faxing/eTransmitting on:?07/22/2025 07:06 AM EST History and Physical Notes * HPI (History of Present Illness) CategorySub-CategoryDetailNotesCategory NotesDepression ScreeningPHQ-2 (2015 Edition)Little interest or pleasure in doing things?: Not at allFeeling down, depressed, or hopeless?: Not at allTotal Score: 0 Examination CategorySub-CategoryDetailNotesCategory NotesPhysical ExamGENERAL:well developed, well nourished, in no acute distressHEAD:normocephalic/atraumatic EYES:pupils equal, round and reactive to light, conjunctivae and sclerae normal EARS:no deformity or lesion of external ear, canals and TM appear normal bilaterally, TM's intact, not inflamed with normal light reflex, hearing grossly normal to conversational speechNOSE:no deformity, discharge, inflammation, or lesionsMOUTH:mucous membranes moist, normal oropharynx and posterior pharynx without lesions or exudates, tonguenormal, dentition normalNECK:neck supple, no masses or palpable cervical nodes, trachea midline, thyroid without nodules, masses, tenderness, or enlargementCHEST:no chest wall deformity, no chest wall tendernessLUNGS:normal respiratory effort and clear to auscultation, no wheezes, rales, or rhonchi, good air exchangeCARDIO:regular rate and rhythm, normal S1 and S2, nor murmur, rub, or gallopPULSES:normal capillary refillABDOMEN:soft, non-distended, non-tender, no massesRECTAL:MUSCULOSKELETAL:no deformity or scoliosis noted, normal range of motion, joints normal, no erythema, edema, effusion, or ecchymosisEXTREMITY:no clubbing, cyanosis, edema, or deformity with normal ROM in both upper and lower bilateral extremitiesNEUROLOGIC:grossly normalSKIN:no rashes, ulcerations, or suspicious lesionsLYMPH NODES:no cervical adenopathy, nodes normalMENTAL STATUS:alert and oriented x3, normal mood and affect
--- OUTSIDE RECORDS SUMMARY | 2025-07-22 07:06 | XMS_ITS | Patient Health Record ---
Author Organization [facility] in [place] Address [address] [place] [address] Care Team Providers Care Time Motion Analyst Name Role Phone Chapito Sam Primary Care Provider Allergies No Known Allergies Reason For Referral No Information Medications Medication SIG (Take, Route, Frequency, Duration) [...] it been since you last smoked?> 10 yearsAlcohol Screen (Audit-C) Question Answer Notes Did you have a drink containing alcohol in the p ast year? Yes How often did you have 6 or more drinks on one occasion in the past year?Monthly or less (1 point)How many drinks did you have on a typical day when you were drinking in the past year?1 or 2 drinks (0 point)How often did you have a drink containing alcohol in the past year?Less than monthly (1 point)Points2 InterpretationNegativeAUDIT-C (Standard) Question Answer Notes Did you have a drink containing alcohol in the p ast year? No Xsvxoo4OunoprigroojakXabptevc Problems Problem Type SNOMED Code ICD Code Onset Dates Problem Status W/U Status Risk Notes Problem Scabies (561151948) Scabies (B86) ActiveconfirmedProblemCarpal tunnel syndrome (60632608)Carpal tunnel syndrome, right upper limb (G56.01)ActiveconfirmedProblemRadial styloid tenosynovitis (92247425)Radial styloid tenosynovitis [de Quervain] (M65.4)Activeconfirmed ProblemMitral regurgitation (77596511)Mitral regurgitation (I34.0)Active confirmedProblemMitral valve disorder (14361462)Moderate mitral regurgitation (I34.0)ActiveconfirmedProblemTricuspid regurgitation (881063947)Tricuspid regurgitation (I07.1)ActiveconfirmedProblemCarpal tunnel syndrome (89803774) Carpal tunnel syndrome (G56.00)ActiveconfirmedProblemDyspnea (603153468)Dyspnea (R06.00)ActiveconfirmedProblemNausea (358209198)Nausea (R11.0)Activeconfirmed ProblemMenorrhagia (575687008)Menorrhagia (N92.0)ActiveconfirmedProblem Nephrolithiasis (84703727)Nephrolithiasis (N20.0)ActiveconfirmedProblemDiarrhea (10713228)Diarrhea (R19.7)ActiveconfirmedProblemWell adult (278964175)Well adult (Z00.00)ActiveconfirmedProblemWell adult (216644777)Well adult (Z00.00)Active confirmedProblemTricuspid valve disorder (41975932)Moderate tricuspid regurgitation (I07.1)ActiveconfirmedProblemEndometrial polyp (9683160402) Endometrial polyp (N84.0)ActiveconfirmedProblemVitamin D deficiency (25003592) Low vitamin D level (E55.9)ActiveconfirmedProblemRight upper quadrant pain (066024939)Abdominal pain, right upper quadrant (R10.11)Activeconfirmed Vital Signs Blood pressure diastolic 60 mm Hg 2025 Brbciy53 in2025lood pressure pjzkstep24 mm Hg07/21/20252630Wtaphb180.0 lbs 2025BMI23.05 kg/m207/21/2025 Encounters Encounter Location Date Provider Diagnosis [facility] [address] [place] [address] 2025 Chapito Sam Well adult Z00.0 0 [facility] [address] [facility] [address] [place] [address] 07/25/2024 Chapito Sam [facility] [facility] [place] [address] 09/21/2024Dorojas Sam Assessments Encounter Date Diagnosis (ICD Code) Assessment Notes Treatment Notes Treatment Clinical Notes Section Notes 2025 Well adult (ICD-10 - Z00.00) Plan Of Treatment Pending Test Test Name Order Date CMP (COMPLETE METABOLIC PANEL) 3 CMP (COMPLETE METABOLIC PANEL) 4 HEMOGLOBIN A1C (GLYCO) 07/10/2023 HEMOGLOBIN A1C (GLYCO) 06/29/2024 HEMOGLOBIN A1C (GLYCO) 2025 IRON, TOTAL 07/10/2023 LIPID PANEL (CHOL/TRIG/HDL/LDL) 06/29/20 24 LIPID PANEL (CHOL/TRIG/HDL/LDL) 07/21/20 25 LIPID PANEL (CHOL/TRIG/HDL/LDL) 07/10/20 23 CBC WITH DIFF 07/10/2023 CBC WITH DIFF 06/29/2024 VITAMIN D, 25 LEVEL (TOTAL) 07/10/2023 VITAMIN D, 25 LEVEL (TOTAL) 06/29/2024 MAMM MAMMOGRAM CAD DIAGNOSTIC 07/10/2023 Insulin Level 07/10/2023 STOOL OCCULT BLOOD 07/10/2023 THYROID PANEL (T4/TSH/FREE T3) 3 THYROID PANEL (T4/TSH/FREE T3) 5 THYROID PANEL (T4/TSH/FREE T3) 4 MM screening mammo BI 06/29/2024 MM screening mammo BI 2025 CMP (COMP MET WELSH) w/eGFR CKD-EPI 2024 CBC WITH DIFF 2025 Insurance Providers Payer Name Payer Address Payer Phone Subscriber Number Group Number Insured Name Patient Relationship to Insured Coverage Start Date Coverage End Date [employer]ESS PPO PLUS LOCAL PLAN [address] [place] [phone] [id number] Hanh Clark Self - patient is the insured Medical (General) History Medical History History ICD Code Carpal tunnel syndrome G56.00 Tricuspid regurgitation I07.1 Mitral regurgitation I34.0 Well adult Z00.00 Carpal tunnel syndrome, right upper limb undefined Diarrhea NauseaModerate tricuspid regurgitationModerate mitral regurgitationDyspnea Endometrial polypMenorrhagiaWell adultAbdominal pain, right upper quadrant ScabiesNephrolithiasisSurgical History Surgery Date(Month/Year) Colonoscopy- Dr. Buckley 09/09/2023 Cyst Removal- Uterus C Section X 1C SectionEye SurgeryEye Surgery
--- OUTSIDE RECORDS SUMMARY | 2025-07-22 07:06 | XMS_ITS | CCD ---
Author Organization [facility] Care Team Providers Care Jet Blade Polisher Name Role Phone PHYSICIAN, DEFAULT Unavailable Unavailable PHYSICIAN, DEFAULT Unavailable Unavailable JESSICA, DR JEAN Attending Unavailable MARCELOY, DR JEAN Admitting Unavailable JESSICA, DR JEAN Primary Care Unavailable MARCELOY, DR JEAN Consulting Unavailable JESSICA, DR JEAN Admitting Unavailable JESSICA, DR JEAN Primary Care Unavailable JESSICA, DR JEAN Consulting Unavailable JESSICA, DR JEAN Attending Unavailable NONE, XXXX Primary Care Physician Unavailab Bladimir Sr Attending Unavailable Dmitri Sam Referring Bladimir Siegel Attending Unavailable Allergies Allergy ClassificationReported Allergen(s)Allergy TypeDate of OnsetReaction(s) Facility (1 source)No Known Medication Allergies; Translations: [No Known Medication Allergies]Propensity to adverse reactions (disorder)[facility] Repository Medications Completed/Discontinued Medications MedicationDrug Class(es)DatesSig (Normalized)Sig (Original)brimonidine tartrate 1 mg/ml ophthalmic solution (1 source)alpha-Adrenergic AgonistStart: 54-36-9315tyzjyxkbfvq ophthalmic 0.1% solution 1 drop(s), Eye-Both, BID, Refill(s) 0 Start Date: 08/18/23 Status: Ordered Problems Problem ClassificationProblemDateDocumented DateEpisodic/ChronicDeficiency and other anemia (5 sources)Anemia, unspecified; Translations: [ANEMIA UNSPECIFIED]Onset: 05-34-1901XxbjjrqkQlwjleoc mellitus without complication (1 source)Other abnormal glucose; Translations: [OTHER ABNORMAL GLUCOSE]Onset: 26-40-3505SznbapcuYuupt valve disorders (2 sources)Mitral valve regurgitation; Translations: [Tricuspid valve regurgitation]72-42-4257RcelyboHluxq gastrointestinal disorders (1 source)Abnormal feces; Translations: [Other fecal abnormalities]Onset: 05-48-3178SnxrdhohSwygy gastrointestinal disorders (1 source)Occult blood in aqfdyt75-24-0295IwbjnvosDujsf nervous system disorders (5 sources)Carpal tunnel syndrome, right upper limb; Translations: [CARPAL TUNNEL SYND RIGHT UPPER LIMB]Onset: 32-02-8734BsnoarzUwwwo screening for suspected conditions (not mental disorders or infectious disease) (1 source)Encounter for screening for malignant neoplasm of rectum; Translations: [ENC SCREEN MALIG NEOPLASM RECTUM]Onset: 75-36-4989Tbagclrn Unclassified (1 source)Body mass index 20-24 - rcidmy26-63-1375 Results Test NameValueInterpretationReference RangeFacilityOutside Colonoscopyon 93-11-1164Klowajs [id number]#1.00TIFF [facility] HospitalReminderson 58-41-5925Tksmgrxgk From: Jocelyne Lama LPN To: GSN - Clinical; Sent: 09/10/2023 10:40:28 EST Show up: 08/10/2033 07:00:00 EST Subject: colonoscopy recall Due Date/Time: 09/09/2033 07:00:00 EST Reminder/Recall Patient due for screening colonoscopy 09/09/2033.[facility] HospitalConsent for Procedure/Surgeryon 34-32-0175Kxwhsqq for Procedure/Surgery [id number]#1.00TIFFMercy Health Clermont HospitalFacesheeton 28-56-9942Dpkfsendo [id number]#1.00TIFKettering Health SpringfieldAmbulatory Visit Summaryon 63-98-1351Qtllcrbrhq Visit Summary TORITO GUILLEN :1970 Visit Date:08/18/2023 Ambulatory Visit Instructions Your Diagnosis Positive fecal occult blood test Your Care Team Attending Physician - Bladimir CASTELLANOS MD Primary Care Physician - NONE, XXXX Referring Physician - Dmitri Sam MD This Is Your Medications List [...] solution) 1 Drops Both eyes 2 times aday Contact prescribing physician if questions or concerns [...] you for choosing us for your care. [facility] HospitalPhysician Referralon 2023 Physician [id number]#1.00TIFFNormalAdena Pike Medical CenterOCC BLD IMMUNO SCREENon 86-67-1135NQOCSU BLOODNegativeNormal NEGATIVEThe [facility] HospitalComment on above:Performed By: #### OBSCRN #### [facility] [address] [place] [address] Dr. Guerline LewisT4, T3U, FTI LABCORPon 49-65-6421Xrav Thyroxine Index1.6Normal 1.2-4.9The [facility] HospitalComment on above:Performed By: #### THYLC #### [facility] [address] [place] [address] Dr. Guerline LewisT3 Kucmve98 %Phfeth55-07Ujy [facility] HospitalComment on above: Performed By: #### THYLC #### [facility] [address] [place] [address] Dr. Guerline LewisT4 [Mass/Vol]5.6 ug/dLNormal4.5-12.0The [facility] HospitalComment on above:Performed By: #### THYLC #### [facility] [address] [place] [address] Dr. Guerline ThompsonC AUTO DIFFon 80-92-3878DUDX #0.0 103/ulNormal0.0-0.1The [facility] HospitalComment on above:Performed By: #### CBC #### [facility] [address] [address] [address] Guerline LewisBasophils/100 WBC (Bld)0.5 %Normal0.2-2.0The [facility] Comment on above:Performed By: #### CBC #### [facility] [address] [place] [address] Dr. Guerline GarnicaO #0.1 103/ulNormal0.0-0.7The [facility] HospitalComment on above: Performed By: #### CBC #### [facility] [address] [address] [address] Guerline Garnicaosinophils/100 WBC (Bld)2.1 %Normal0.9-7.0The [facility] Comment on above:Performed By: #### CBC #### [facility] [address] [place] [address] Dr. Guerline Garnicarythrocyte distribution width (RBC) [Ratio]12.3 %Trdwpp95.0-15.0 The [facility] HospitalComment on above:Performed By: #### CBC #### [facility] [address] [place] [address] Dr. Guerline LewisHematocrit (Bld) [Volume fraction]38.7 %Qvkjfk79.0-48.0The [facility] HospitalComment on above:Performed By: #### CBC #### [facility] [address] [address] [address] Guerline LewisHemoglobin (Bld) [Mass/Vol]12.6 g/mINmmndz91.0-16.0The [facility] Hospitalment on above:Performed By: #### CBC #### [facility] [address] [place] [address] Dr. Guerline Jacques #0.01 10e3/ulNormal0.00-0.03The [facility] HospitalCombeaumont hospital on above:Performed By: #### CBC #### [facility] [address] [place] [address] Dr. Guerline Jacques %0.2 %Normal0.0-0.5The [facility] HospitalComment on above: Performed By: #### CBC #### [facility] [address] [place] [address] Dr. Guerline Moore #1.2 103/ulNormal1.2-3.8The [facility] HospitalComment on above:Performed By: #### CBC #### [facility] [address] [place] [address] Dr. Guerline Goldsteinhocytes/100 WBC (Bld)28.1 %Ztwvnj50.5-60.0The [facility] HospitalCombeaumont hospital on above:Performed By: #### CBC #### [facility] [address] [place] [address] Dr. Guerline MeiUAL DIFF REQNONormalThe [facility] HospitalComment on above: Performed By: #### CBC #### [facility] [address] [place] [address] Dr. Guerline Sheppard (RBC) [Entitic mass]29.6 cmCuseuq21.7-34.0The [facility] HospitalComment on above:Performed By: #### CBC #### [facility] [address] [place] [address] Dr. Guerline Sheppard (RBC) [Mass/Vol]32.6 g/eHPofkbi34.9-35.2The [facility] HospitalComment on above:Performed By: #### CBC #### [facility] [address] [place] [address] Dr. Guerline Sheppard (RBC) [Entitic vol]90.8 fQJiajqo53.0-99.0The [facility] HospitalComment on above:Performed By: #### CBC #### [facility] [address] [address] [address] Guerline Lim #0.3 103/ulNormal0.3-0.8The [facility] HospitalComment on above:Performed By: #### CBC #### [facility] [address] [address] [address] Guerline Reynosoocytes/100 WBC (Bld)7.6 %Normal1.7-12.0The [facility] Comment on above:Performed By: #### CBC #### [facility] [address] [place] [address] Dr. Guerline Terrazas #2.7 103/ulNormal1.4-6.5The [facility] HospitalComment on above:Performed By: #### CBC #### [facility] [address] [place] [address] Dr. Guerline Swainutrophils/100 WBC (Bld)61.5 %Ondkyv87.0-75.0The [facility] HospitalComment on above:Performed By: #### CBC #### [facility] [address] [place] [address] Dr. Guerline Fischer mean volume (Bld) [Entitic vol]10.2 fLNormal9.5-13.5The [facility] HospitalComment on above:Performed By: #### CBC #### [facility] [address] [place] [address] Dr. Guerline LewisPLT210 103/eoWwpbze179-686Rll [facility] HospitalComment on above: Performed By: #### CBC #### [facility] [address] [place] [address] Dr. Guerline LewisRBC4.26 106/ulNormal4.20-5.40The [facility] HospitalComment on above:Performed By: #### CBC #### [facility] [address] [place] [address] Dr. Guerline LewisWBC4.3 103/ulNormal4.0-11.0The [facility] Memorial Hospitalment on above: Performed By: #### CBC #### [facility] [address] [place] [address] Dr. Guerline LewisGLYCOHEMOGLOBIN A1Con 37-31-3680KKZ RECOMMENDATIONSEE BELOWGreene Memorial HospitalCombeaumont hospital on above:Result Comment: ADA RECOMMENDED LIMIT 4.0 - 6.0 ADA THERAPEUTIC TARGET < 7.0 ACTION SUGGESTED > 7.0Performed By: #### A1C #### [facility] [address] [place] [address] Dr. Guerline LewisGlucose [Mass/Vol]111 mg/dLNoNationwide Children's HospitalComment on above:Performed By: #### A1C #### [facility] [address] [place] [address] Dr. Guerline LewisHbA1c (Bld) [Mass fraction]5.5 %Normal4.5-6.2[facility] HospitalComment on above:Performed By: #### A1C #### [facility] [address] [place] [address] Dr. Guerline Azar 88-43-2422Llfa [Mass/Vol]90.0 ug/cHXjqoch19.0-170.0[facility] HospitalComment on above:Performed By: #### IRON #### [facility] [address] [place] [address] Dr. Guerline LewisLIPID PROFILEon 42-82-5190ABPY-HDL RATIO NORMSEE [facility] CenterComment on above:Result Comment: 3.3 - 4.4 LOW RISK 4.4 - 7.1 AVERAGE RISK 7.1 - 11.0 MODERATE RISK >11.0 HIGH RISKPerformed By: #### LIPID, TSH, CMP #### [facility] [address] [place] [address] Dr. Guerline LewisCholesterol [Mass/Vol]153 mg/dLNormal<=200The [facility] Comment on above:Performed By: #### LIPID, TSH, CMP #### [facility] [address] [place] [address] Dr. Guerline LewisCholesterol in HDL [Mass/Vol]76 mg/dLCritically qvyw77-86NgcToledo HospitalComment on above:Performed By: #### LIPID, TSH, CMP #### [facility] [address] [address] [address] Guerline De La Cruzesterol in LDL [Mass/Vol]71.6 mg/dLNoNationwide Children's HospitalComment on above:Performed By: #### LIPID, TSH, CMP #### [facility] [address] [place] [address] Dr. Guerline Holliday.total/Cholesterol in HDL [Mass ratio]2.0 {ratio} NormalThe [facility] HospitalComment on above:Performed By: #### LIPID, TSH, CMP #### [facility] [address] [place] [address] Dr. Guerline Medrano NORMAL> or = 60 mg/dl - LOW CARDIOVASCULAR RISK <40 mg/dl - HIGH CARDIOVASCULAR RISKNoNationwide Children's HospitalComment on above:Performed By: #### LIPID, TSH, CMP #### [facility] [address] [place] [address] Dr. Guerline Low CALC NORMALSEE BELOWHocking Valley Community HospitalComment on above:Result Comment: <100 mg/dl OPTIMAL 100 - 129 mg/dl NEAR OR ABOVE OPTIMAL 130 - 159 mg/dl BORDERLINE HIGH 160 - 189 mg/dl HIGH >190 mg/dl VERY HIGH Performed By: #### LIPID, TSH, CMP #### [facility] [address] [place] [address] Dr. Guerline LewisTriglyceride [Mass/Vol]27 mg/dLNormal<=150[facility] Comment on above:Performed By: #### LIPID, TSH, CMP #### [facility] [address] [place] [address] Dr. Guerline BarreraLDL CALC5.4 mg/dLNoNationwide Children's HospitalComment on above: Performed By: #### LIPID, TSH, CMP #### [facility] [address] [place] [address] Dr. Guerline LewisPROBird 14(COMP METB)on 09-48-3059Ypybnkw [Mass/Vol]3.9 g/dLNormal 3.4-5.0The [facility] HospitalComment on above:Performed By: #### LIPID, TSH, CMP #### [facility] [address] [address] [address] Guerline LewisAlbumin/Globulin [Mass ratio]1.1 {ratio}NormalThe [facility] HospitalComment on above:Performed By: #### LIPID, TSH, CMP #### [facility] [address] [address] [address] Guerline ChatmanP [Catalytic activity/Vol]75 U/TZuhppz88-282Sjy [facility] HospitalComment on above:Performed By: #### LIPID, TSH, CMP #### [facility] [address] [place] [address] Dr. Guerline ChatmanT [Catalytic activity/Vol]25 U/RPvjpml78-16Ljq [facility] HospitalComment on above:Performed By: #### LIPID, TSH, CMP #### [facility] [address] [place] [address] Dr. Guerline Hutchinson gap [Moles/Vol]12.0 mmol/LNormalThe [facility] Comment on above:Performed By: #### LIPID, TSH, CMP #### [facility] [address] [place] [address] Dr. Guerline LewisAST [Catalytic activity/Vol]15 U/TUsgmaf85-20Qai [facility] HospitalComment on above:Performed By: #### LIPID, TSH, CMP #### [facility] [address] [place] [address] Dr. Guerline LewisBilirubin [Mass/Vol]0.4 mg/dLNormal0.2-1.0The [facility] Comment on above:Performed By: #### LIPID, TSH, CMP #### [facility] [address] [place] [address] Dr. Guerline LewisCalcium [Mass/Vol]9.1 mg/dLNormal8.5-10.1The [facility] Comment on above:Performed By: #### LIPID, TSH, CMP #### [facility] [address] [address] [address] Guerline LewisChloride [Moles/Vol]107 mmol/ZZsmkzi36-439Qmz [facility] Comment on above:Performed By: #### LIPID, TSH, CMP #### [facility] [address] [address] [address] Guerline LewisCO2 [Moles/Vol]26.3 mmol/IEhzuoo21.0-32.0The [facility] Comment on above:Performed By: #### LIPID, TSH, CMP #### [facility] [address] [address] [address] Guerline LewisCreatinine [Mass/Vol]0.64 mg/dLNormal0.55-1.02The [facility] HospitalComment on above:Performed By: #### LIPID, TSH, CMP #### [facility] [address] [place] [address] Dr. Guerline GarnicaGFR-AF IRANIAN>60Normal>=60The [facility] HospitalComment on above:Performed By: #### LIPID, TSH, CMP #### [facility] [address] [address] [address] Guerline GarnicaGFR-NON AF IRANIAN>60Normal>=60The [facility] HospitalComment on above:Performed By: #### LIPID, TSH, CMP #### [facility] [address] [place] [address] Dr. Guerline LewisGlobulin (S) [Mass/Vol]3.4 g/dLNormalThe [facility] HospitalComment on above:Performed By: #### LIPID, TSH, CMP #### [facility] [address] [address] [address] Guerline LewisGlucose [Mass/Vol]85 mg/tHGlmosz06-127Wiv [facility] Comment on above:Performed By: #### LIPID, TSH, CMP #### [facility] [address] [address] [address] Guerline LewisPotassium [Moles/Vol]4.3 mmol/LNormal3.5-5.1The [facility] Comment on above:Performed By: #### LIPID, TSH, CMP #### [facility] [address] [place] [address] Dr. Guerline LewisProtein [Mass/Vol]7.3 g/dLNormal6.4-8.2[facility] Comment on above:Performed By: #### LIPID, TSH, CMP #### [facility] [address] [place] [address] Dr. Guerline LewisSodium [Moles/Vol]141 mmol/PBxfppf133-581DtwToledo Hospital Comment on above:Performed By: #### LIPID, TSH, CMP #### [facility] [address] [place] [address] Dr. Guerline LewisUrea nitrogen [Mass/Vol]16.0 mg/dLNormal7.0-18.0[facility] HospitalComment on above:Performed By: #### LIPID, TSH, CMP #### [facility] [address] [place] [address] Dr. Guerline Ponce nitrogen/Creatinine [Mass ratio]25.0 mg/mgNormalThe [facility] HospitalComment on above:Performed By: #### LIPID, TSH, CMP #### [facility] [address] [place] [address] Dr. Guerline Florentino 42-49-0184PFQ6.883 uIU/mLNormal0.358-3.740[facility] HospitalComment on above:Performed By: #### LIPID, TSH, CMP #### [facility] [address] [place] [address] Dr. Guerline Lewis Vital Signs Date TimeVital SignValuePerforming GikepajjbHodxtsst37-33-4195 14:34-0500Blood Pressure LocationMichaesvetlana NILL [facility] Dqchkdvu73-61-8734 14:34-0500Diastolic blood fejqaycc17 mm[Hg]Bladimir CASTELLANOS [facility] Aezjgkac39-72-4440 14:34-0500Heart rate 68 /minMichaesvetlana NILL General Surgery Dlwujtia90-07-9187 14:34-0500 Respiratory rate16 /minMichael NILL General Surgery Etryxsqu07-08-8270 14:34-0500Systolic blood ppuntnsa302 mm[Hg]Bladimir NILL General Surgery [place] Encounters Encounter DateEncounter TypeCare ProviderFacilityStart: 09-09-2023 End: 57-00-8250lzxmrvhnjwNmtryjm R NILLFacility::[id number]: 08-18-2023 End: 09-39-7808lxgfbmloicShytrmn R NILLFacility: [place]Start: 08-18-2023 End: 62-27-5530Wcpwbvr encounter procedureMichael R NILL General Surgery Nill/Said [place] Start: 93-40-9126azadmsrkeyQsckahp NILLFacility: [place]vueStart: 62-87-5849kaavcfcktqCouvacn NILLFacility: [place]walkStart: 05-05-2022 End: 09-18-6972bxacxxkypfWZ DMITRI HOYFacility:L0Eulgu: 05-03-2022 End: 27-09-5603umiqmbbitlRI DMITRI HOYFacility:K3Umrqe: 06-04-2017 End: 91-40-6835ZixrgyasauLBBBDXU PHYSICIANFacility:[facility] Procedures DateProcedureProcedure DetailPerforming ClinicianBladder excisionMichael NILL Comment on above:uterineBladder excisionMichael NILL Comment on above:uterusCesarean sectionMichael NILL Dilation and curettageMichael NILL Ophthalmic surgery (qualifier value)Bladimir FORRESTERL Immunizations Immunization DateImmunizationNotesCare ProviderFacilityNEGATED: Highlighted row has not occurred!95-85-8080brguwumsa virus vaccine, unspecified formulation Bladimir CASTELLANOS General Surgery [place] Payers DatePayer CategoryPayerPolicy [id number] [id number] [id number] [id number] Social History DateTypeDetailFacilityStart: 80-57-1616Jcpjybo smoking statusEx-smoker (finding) [facility] [place] [facility] smoking statusNeverGeneral Surgery [facility] Functional Status KddnEzdnawkwwvCajgmhOwswjdbq36-43-6719Akyfxztwia StatusN/AGeneral Surgery [place] Clinical Note 08-18-2023 Note Date & WtkiLhacKsyeasxx10-36-8589 NoteChief Complaint consultation for positive occult stool HPI [...] swallowing difficulties, no hearing loss, no ear infection(s),no nose bleeds. Cardiovascular: normal blood pressure, no [...] virus vaccine, inactivated - Not Given Patient RefusesAdena Pike Medical CenterComment on above:Result Comment: Electronically Signed By: EMANUEL GRUBBS, Bladimir Florian\Date and Time Signed: 08/18/23 14:59 EST Evaluation + Plan note Note Date & TypeNoteFacilityEvaluation + Plan note No data available for this section General Surgery [place] [facility] Discharge instructions Note Date & TypeNoteFacilityHospital Discharge instructions No data available for this section General Surgery [place] Progress note Note Date & TypeNoteFacilityProgress note No data available for this section General Surgery [place] Summary Purpose Family History No Family History Records FoundNo Family History Records Found No data available for this section No Family History Records Found Advance Directives No Advanced Directives Records FoundNo Advanced Directives Records FoundNo Advanced Directives Records Found Additional Source Comments INFORMATION SOURCE (unrecogn ized section and content) DATE CREATED AUTHOR 03/10/2018 [facility] DATE CREATED AUTHOR AUTHOR'S ORGANIZ ATION 05/08/2022 [facility] DATE CREATED AUTHOR AUTHOR'S ORGANIZ ATION 09/15/2023 [facility] FOR RECORDS PERTAINING TO PATIENTS WHO ARE [...] BE BASED ON THE PRIMARY CLINICAL RECORDS. [facility] [employer] [facility]. provides no warranty or guarantee of the accuracy or completeness of information in this document.
[2025-07-22 07:42] LABS: Hematocrit 39.5 % (36.0-48.0); Hemoglobin 13.7 g/dL (12.0-16.0); Immature Granulocytes Abs Auto 0.01 10^3/uL (0.00-0.03); Immature Granulocytes Pct Auto 0.2 % (0.0-0.5); Lymphocytes Absolute Auto 1.4 10^3/uL (1.2-3.8); Mean Corpuscular HGB Conc 34.7 g/dL (29.9-35.2); Mean Corpuscular Hemoglobin 31.0 pg (26.7-34.0); Mean Corpuscular Volume 89.4 fL (81.0-99.0); Platelet Count 254 10^3/uL (150-450); Red Blood Count 4.42 10^6/uL (4.20-5.40); White Blood Count 5.1 10^3/uL (4.0-11.0)
[2025-07-22 08:03] LABS: Alanine Aminotransferase 24 U/L (14-59); Albumin Globulin Ratio 1.2; Albumin Level 3.9 g/dL (3.4-5.0); Alkaline Phosphatase 85 U/L (46-116); Anion Gap 9.6; Aspartate Amino Transferase 16 U/L (15-37); Blood Urea Nitrogen 18.0 mg/dL (7.0-18.0); Calcium 9.4 mg/dL (8.5-10.1); Carbon Dioxide 27.6 mmol/L (21.0-32.0); Chloride 109 mmol/L (98-107); Cholesterol 171 mg/dL (<=200); Estimated GFR (African America >60 (>=60 mL/min/1.73m^2); Estimated GFR (Non-African Ame >60 (>=60 mL/min/1.73m^2); Free T3 2.37 pg/mL (2.18-3.98); Globulin 3.3 g/dL; Glucose 88 mg/dL (74-106); HDL Cholesterol 73 mg/dL (40-60); Potassium 4.2 mmol/L (3.5-5.1); Sodium 142 mmol/L (136-145); Thyroid Stimulating Hormone 1.548 uIU/mL (0.358-3.740); Total Protein 7.2 g/dL (6.4-8.2); Triglycerides 26 mg/dL (<=150); VLDL CHOLESTEROL 5.2 mg/dL
== END 2025-07-22 07:04 | disposition home or self-care (01) ==
PROVIDERS: PCP Family Medicine; Visit Provider Family Medicine
DX: Z00.00 Encounter for general adult medical examination without abnormal findings (principal)
CPT/HCPCS: 36415; 80053; 80061; 83036; 84436; 84443; 84481; 85025